=== PATIENT | male | born 1970 | race Caucasian/White ===

== ENCOUNTER 2017-03-06 10:13 | Day surgery (SDC) | payer BC ==
[~2017-03-06] VITALS: Ht 180.3 cm; Wt 127.0 kg
[~2017-03-06 10:13] MED LIST: BUPIVAC MPF-EPI 0.5%-1:200000 30 ML VIAL. ONE; GLUCAGON,HUMAN RECOMBINANT 1 MG/ML VIAL. ONE; HYDROmorphone 2 MG/ML VIAL IV PRN; IOHEXOL 300 MG/ML 50 ML VIAL. ONE; IV RINGERS,LACTATED 1000ML 1,000 ML IV SCH; LIDOCAINE 1% 1 ML SYRINGE. ID PRN; MORPHINE SULFATE 2 MG/ML DISP.SYRIN. IV PRN; ONDANSETRON PF 4 MG/2 ML VIAL. IV PRN; PROCHLORPERAZINE 10 MG/2 ML VIAL. IV PRN; SURGICEL HEMOSTAT 4X8 EACH. ONE; fentaNYL PF VIAL 100 MCG/2 ML VIAL IV PRN
[2017-03-06] MEDS ORDERED: DEXT30CA6 PO (10:38)
[2017-03-06] MEDS ORDERED: IV RINGERS,LACTATED 1000ML 1,000 ML IV SCH (11:00)
[2017-03-06 11:51] LABS: BASO # 0.1 x10^3/uL (0.0-0.2); BASO % 1 % (0-3); EOS % 2 % (0-3); HEMATOCRIT 40.8 % (39.0-53.0); HEMOGLOBIN 13.8 g/dL (13.0-17.5); LYMPH # 2.2 x10^3/uL (1.0-4.8); LYMPH % 37 % (24-48); MEAN CORPUSCULAR HEMOGLOBIN 30 pg (25-35); MEAN CORPUSCULAR HGB CONC 34 g/dL (31-37); MEAN CORPUSCULAR VOLUME 89 fL (79-100); MONO % 7 % (0-9); NEUT % 53 % (31-73); PLATELET COUNT 225 x10^3/uL (140-400); RED BLOOD COUNT 4.59 x10^6/uL (4.30-5.70); RED CELL DISTRIBUTION WIDTH 13.1 % (11.5-14.5); WHITE BLOOD COUNT 5.9 x10^3/uL (4.0-11.0)
[2017-03-06 11:52] LABS: CALCIUM 8.3 mg/dL (8.5-10.1); GFR 80.4; POTASSIUM 3.7 mmol/L (3.5-5.1)
[2017-03-06 11:57] LABS: ALBUMIN 3.5 g/dL (3.4-5.0); TOTAL BILIRUBIN 0.7 mg/dL (0.2-1.0)
[2017-03-06] MEDS ORDERED: fentaNYL PF VIAL 100 MCG/2 ML VIAL ONE ×3 (12:13→14:08)
[2017-03-06] MEDS ORDERED: MIDAZOLAM HCL/PF 2 MG/2 ML VIAL. ONE (12:13)
[2017-03-06] MEDS ORDERED: ONDANSETRON PF 4 MG/2 ML VIAL. ONE (12:15)
[2017-03-06] MEDS ORDERED: PROPOFOL 20 ML IV ONE (12:15)
[2017-03-06] MEDS ORDERED: DEXAMETHASONE SOD PHOS 20 MG/5 ML VIAL. ONE ×2 (12:15→12:25)
[2017-03-06] MEDS ORDERED: LIDOCAINE 2% PF Vial for OR 5 ML VIAL. ONE (12:15)
[2017-03-06] MEDS ORDERED: NEOSTIGMINE METHYLSULFATE 5 MG/5 ML SYRINGE. ONE (12:23)
[2017-03-06] MEDS ORDERED: GLYCOPYRROLATE 1 MG/5 ML VIAL. ONE (12:23)
[2017-03-06] MEDS ORDERED: DESFLURANE 61 TO 120 MINUTES IH ONE (13:46)
--- NOTE | 2017-03-06 13:46 | RAD ---
Intraoperative cholangiogram, 03/06/2017: History: Cholecystectomy 5 spot films surgery are presented for review. Contrast has been injected into the cystic duct remnant. 14 seconds of fluoroscopy time was utilized. There is motion artifact on some of these images. There is good flow of contrast into the duodenum at the ampulla. No consistent filling defect is seen in the common duct to suggest a retained calculus. The incompletely opacified intrahepatic ducts are unremarkable. IMPRESSION: No significant abnormality is detected.
--- NOTE | 2017-03-06 14:13 | DISCH ---
DISCHARGE INSTRUCTIONS Condition on Discharge Condition on Discharge: Stable Activity After Discharge Activity Instructions for Disc: Activity as tolerated, Avoid exertion Lifting Instructions after Dis: No heavy lifting Driving Instructions after Dis: Do not drive (4-5 days) Sexual Activity Restrictions: abstain for a week Diet after Discharge Diet after Discharge: Regular Wound Incision Care Wound/Incision Care: Ice to area for comfort Other wound/incision instructi: november shower Thursday Follow-Up Follow up with: Bong in the [facility] office next week DAX WASHINGTON MD Mar 06, 2017 14:13
--- NOTE | 2017-03-06 14:19 | PDOC ---
BRIEF OPERATIVE NOTE Date: Mar 06, 2017 Pre-Op Diagnosis sx cholelithiasis Post-Op Diagnosis same Procedure Performed l/s cholecystectomy with cholangiograms Surgeon Bong Anesthesia Type: General Blood Loss 15cc IV Fluid 600cc Specimens Obtained GB Findings supple GB, omental adhesions to the GB and abdominal wall from previous procedures Complications none OPerative Note Wk # [id number] DAX WASHINGTON MD Mar 06, 2017 14:19
[2017-03-06] MEDS: fentaNYL PF VIAL 100 MCG/2 ML VIAL IV PRN ×2 (14:21→14:37)
[2017-03-06] MEDS ORDERED: OXYC-327 PO (14:23)
[2017-03-06] MEDS ORDERED: DOCU-150 PO (14:24)
--- NOTE | 2017-03-06 14:53 | OP ---
DATE OF SURGERY: 03/06/2017 PREOPERATIVE DIAGNOSIS: Symptomatic cholelithiasis. POSTOPERATIVE DIAGNOSIS: Symptomatic cholelithiasis. PROCEDURE: Laparoscopic cholecystectomy with cholangiogram. SURGEON: Dax Washington M.D. ANESTHESIA: General endotracheal. ESTIMATED BLOOD LOSS: 15 mL. INTRAVENOUS FLUIDS: 600. INDICATIONS: The patient is a 46-year-old status post gastric bypass with significant weight loss. He has had some epigastric and right upper quadrant pain. The scans suggest stones and is brought for cholecystectomy. OPERATIVE FINDINGS: The liver was smooth and sharp. The gallbladder was supple. There were omental adhesions along the inferior surface of the gallbladder and also to the abdominal wall from previous procedures. Remainder of the inspection failed to reveal obvious abnormalities. The previous gastric bypass surgery was visible. Cholangiograms were normal. DESCRIPTION OF PROCEDURE: The patient brought to the operating suite, given a general endotracheal anesthetic and the abdomen prepped and draped in usual sterile fashion. An infraumbilical incision was infiltrated with local anesthetic, sharply incised and a 5 mm Visiport used to gain access into the abdominal cavity, taking care to avoid injury to abdominal contents. Pneumoperitoneum was established. Camera inserted and inspection carried out with results as noted above. With the table in reverse Trendelenburg rolled to the left, the epigastric, midclavicular, and lateral ports were placed under direct vision after infiltrating with local anesthetic. The gallbladder was retracted superolaterally and carefully exposed with blunt and cautery dissection, taking down the omental adhesions, being careful to avoid injury to the adjacent bowel. The cystic duct and cystic artery were identified. The cystic duct was clipped on the gallbladder side. Cholangiograms were made. These were normal. In light of this, the catheter was removed. The cystic duct was clipped x 3 and divided, taking care to avoid injury or compromise of the common duct. The cystic artery was clipped and divided and the gallbladder freed from the bed with cautery dissection and placed in an EndoCatch bag. Good hemostasis was present. The table returned to level. Gallbladder delivered through the epigastric incision. Epigastric incision closed with interrupted 0 Vicryl suture. Intra-abdominal pressure decreased to 6 cm of water. No bleeding from the epigastric closure site or from the midclavicular or lateral port sites after their removal. Abdomen decompressed, camera slowly removed, no bleeding seen. Skin incisions closed with subcuticular 4-0 Monocryl with Steri-Strips or 5-0 nylon. Sterile dressings applied. The patient was awakened from his anesthetic and taken to the recovery room in satisfactory condition. DAX WASHINGTON MD DR: DALLAS/dorothy JOB#: [id number] / [id number]
[2017-03-06] MEDS ORDERED: oxyCODONE/APAP 7.5/325 1 TAB TABLET PO ONE (15:00)
[2017-03-06] MEDS ORDERED: MORPHINE SULFATE 4 MG/ML DISP.SYRIN. IV PRN (15:11)
[2017-03-06 15:28] VITALS: BP 112/70
== END 2017-03-06 15:51 | disposition home or self-care (01) ==
LOC: SURG 10:13
PROVIDERS: ATTEND Surgery
DX: K80.20 Calculus of gallbladder without cholecystitis without obstruction (principal); E66.9 Obesity, unspecified; Z68.42 Body mass index [BMI] 45.0-49.9, adult; Z87.442 Personal history of urinary calculi; Z72.89 Other problems related to lifestyle
CPT/HCPCS: 36415; 47563; 74300; 80048; 82040; 82247; 85025; C1769; J0690; J1100; J2250; J2405; J2704; J2710; J3010; J3490; J7030; J7120; Q9967; J1610; J2001